=== PATIENT | female | born 1990 | race Caucasian/White ===

== ENCOUNTER → 2019-12-24 14:07 | Outpatient (CLI) | payer OTHER, SELFPAY ==
[2019-12-24 13:43] VITALS: BMI 22.9
--- NOTE | 2019-12-24 14:11 | RAD_ITS ---
STUDY: X-RAY - LEFT HAND REASON FOR EXAM: Female, 29 years old. Contusion wrist after injury 1.5 weeks ago TECHNIQUE: 3 view(s) of the hand. COMPARISON: None. FINDINGS: Normal radiocarpal articulation. Normal distal radioulnar joint. Normal visualized carpal bones. Normal carpal articulations Normal carpometacarpal articulation of the thumb. Normal second through fifth carpometacarpal joints. Normal metacarpi. Normal metacarpophalangeal joint of the thumb. Normal interphalangeal joint of the thumb. Normal proximal and distal phalanges of the thumb. Normal metacarpophalangeal joints of the second through fifth fingers. Normal proximal and distal interphalangeal joints of the second through fifth fingers. Normal phalanges of the second through fifth fingers. The soft tissue structures are unremarkable. RAD/Hand Min 3 Views IMPRESSION: Normal x-ray examination of the hand. Electronically Signed: Jeb Lantigua, at 14:33 EDT , Service support ,
== END ==
PROVIDERS: Referring Provider Physician Assistant Surgical; Visit Provider Physician Assistant Surgical
DX: S60.212A Contusion of left wrist, initial encounter (principal); X58.XXXA Exposure to other specified factors, initial encounter; Y93.9 Activity, unspecified; Y92.9 Unspecified place or not applicable; Y99.9 Unspecified external cause status
CPT/HCPCS: 73130

== ENCOUNTER 2019-12-31 14:16 | Emergency (ER) | payer SELFPAY ==
[2019-12-24 13:43] VITALS: BMI 22.9
[2019-12-31 14:17] VITALS: BP 96/71; PULSE 91; RESP 16; TEMP 36.8; O2SAT 99; BMI 23.5
--- NOTE | 2019-12-31 14:37 | ED.DCSUM_ITS ---
- ER Visit Summary Date of Service: 12/31/19 Chief Complaint: Sore throat, congestion History of Present Illness: The patient is a 29 F who presents with a sore throat and congestion that is been getting worse over the past 2 days. Patient states her throat pain is dull. Patient states her head feels congested. Patient states this is worse in her throat and her nose. Patient states she has some trouble breathing because of the nasal congestion. Patient admits to a cough but denies any sputum production. Patient denies any fevers or chills. Patient denies any chest pain. Patient denies any nausea or vomiting. Physical Examination: Vital signs are stable. Patient is afebrile. Patient is in no acute distress. Oral mucosa is pink and moist. Oropharynx is mildly erythematous. There is some postnasal drainage. Nasal mucosa is congested. Tympanic membranes are clear. Neck is supple. Trachea is midline. There is no JVD. There is tender anterior cervical lymphadenopathy. Heart was regular rate and rhythm. Lungs are clear and equal bilaterally. Abdomen is soft and nontender. Cranial nerves II through XII are intact. There are no focal motor or sensory deficits noted. Extremities are intact. There is no calf tenderness or edema. Test Results: PA and lateral chest x-ray was obtained. There is no acute cardiopulmonary process. This is interpreted by the radiologist and myself. Influenza swab was obtained and was negative. Rapid strep was obtained and was negative. Emergency Department Course and Treatment: Patient was given a dose of Afrin nasal spray here. Patient was advised of her results. She was instructed to drink plenty of fluids. Patient was instructed to take Tylenol or ibuprofen as needed for aches or fevers. Patient was instructed to quarantine herself for e next 2 weeks. Patient was instructed to follow-up with her primary care physician in 5 to 7 days. Patient understood and was agreeable with the plan. All questions were answered. Disposition: Discharge home Impression: Viral upper respiratory infection This note was generated with [employer] dictation software. It may contain incorrect words, spelling, and punctuation that were not noted in review of the chart prior to signing ED Disposition - Plan for ED Patient: Disposition: Home or Assisted Living Diagnosis: Viral upper respiratory tract infection with cough Instructions: URI, Viral, No Abx (Adult) Referrals: [facility] Doctor,Out of [Primary Care Provider] - 5-7 Days
[2019-12-31] MEDS: Oxymetazoline 0.05% 1 SPRAY SPRAY.BTL NASAL (14:50)
--- NOTE | 2019-12-31 14:52 | RAD_ITS ---
STUDY: X-RAY CHEST REASON FOR EXAM: Female, 29 years old. CONGESTION AND SORE THROAT, COUGH TECHNIQUE: PA and lateral views of the chest. COMPARISON: None. FINDINGS: The lungs are clear and expanded. There is no demonstrated pleural abnormality. Normal size heart. Normal mediastinum and jordan. Normal visualized pulmonary arteries. Normal visualized aortic arch and descending thoracic aorta. Normal visualized thoracic spine. Normal visualized ribs, clavicles, and shoulders. There is no demonstrated abnormality of the visualized soft tissue structures of the upper abdomen. RAD/Chest PA and Lateral IMPRESSION: Normal x-ray examination of the chest. Electronically Signed: Jeb Lantigua, at 15:09 EDT , Service support ,
== END 2019-12-31 17:18 | disposition home or self-care (01) ==
PROVIDERS: Emergency Provider Emergency Medicine
DX: J06.9 Acute upper respiratory infection, unspecified (principal); Z72.0 Tobacco use
CPT/HCPCS: 71046; 87804; 87880; 99282